=== PATIENT | female | born 1960 | race Two or more races ===

== ENCOUNTER 2021-04-17 05:44 | Day surgery (SDC) | payer OTHER | END 2021-04-17 17:30 | disposition home or self-care (01) | LOC: AMB-ENDOS 05:44 | PROVIDERS: ATTEND Surgery | DX: D12.0 Benign neoplasm of cecum (principal); D12.2 Benign neoplasm of ascending colon; D12.3 Benign neoplasm of transverse colon; D12.8 Benign neoplasm of rectum; K64.8 Other hemorrhoids; Z20.822 Contact with and (suspected) exposure to COVID-19; Z12.11 Encounter for screening for malignant neoplasm of colon ==

== ENCOUNTER 2021-05-06 12:15 | Inpatient (IN) | payer OTHER ==
[~2021-05-06] VITALS: Ht 160 cm; Wt 88.5 kg
[2021-05-07] MEDS ORDERED: HUMALOG100 UNIT/2 (12:02)
[2021-05-07] MEDS ORDERED: LANTUS SOL100 UNIT/1 (12:02)
[2021-05-07] MEDS ORDERED: PROAIR RESPICL90 MCG IH (12:03)
[2021-05-07] MEDS ORDERED: SINGULAIR10 MG PO (12:03)
[2021-05-07] MEDS ORDERED: WIXELA 100-501 EACH IH (12:03)
[2021-05-07] MEDS ORDERED: ZYRTEC10 M3 PO (12:04)
[2021-05-07] MEDS ORDERED: MILLIPRED5 MG PO (12:04)
[2021-05-07] MEDS ORDERED: DILTIAZEM ER120 M2 PO (12:05)
[2021-05-07] MEDS ORDERED: ENBREL50 MG/1 M1 SUBCUTANEO (12:05)
[2021-05-07] MEDS ORDERED: IRBESARTAN150 MG PO (12:05)
[2021-05-07] MEDS ORDERED: PANTOPRAZOLE SO40 MG PO (12:06)
[2021-05-07] MEDS ORDERED: BACLOFEN20 MG PO (12:06)
[2021-05-07] MEDS ORDERED: SYNTHROID50 MCG PO (12:06)
[2021-05-07] MEDS ORDERED: RESTASIS MULTI5.5 ML OP (12:07)
[2021-05-07] MEDS ORDERED: SYSTANE 0.3-0.1 EACH OP (12:08)
[2021-05-07] MEDS ORDERED: EPIPEN0.3 MG/0.1 IJ (12:08)
[2021-05-07] MEDS ORDERED: MAGNESIUM250 M1 PO (12:09)
[2021-05-07] MEDS ORDERED: KLOR-CON M1010 MEQ PO (12:09)
[2021-05-07] MEDS ORDERED: D3 + K2 DOTS 11 EACH PO (12:09)
[2021-05-07] MEDS ORDERED: MULTIPLE VITAM1 EAC2 PO (12:09)
[2021-05-07] MEDS ORDERED: PROBIOTIC1 EAC2 PO (12:10)
[2021-05-13] MEDS ORDERED: TORADOL60 MG IM (17:10)
== END 2021-05-13 18:40 | disposition home or self-care (01) | DRG 330 ==
LOC: SURH 05-09 05:45 → O/R 05-09 05:45 → SURH 05-09 08:30
PROVIDERS: ADMIT Surgery; ATTEND Surgery
PROC: 0DTP4ZZ Resection of Rectum, Percutaneous Endoscopic Approach (ICD-10-PCS; 2021-05-09)
PROC: 0DNW4ZZ Release Peritoneum, Percutaneous Endoscopic Approach (ICD-10-PCS; 2021-05-09)
PROC: 0DJD8ZZ Inspection of Lower Intestinal Tract, Via Natural or Artificial Opening Endoscopic (ICD-10-PCS; 2021-05-09)
PROC: 0DBN4ZZ Excision of Sigmoid Colon, Percutaneous Endoscopic Approach (ICD-10-PCS; principal; 2021-05-09 08:30)
DX: K57.32 Diverticulitis of large intestine without perforation or abscess without bleeding (principal); N82.3 Fistula of vagina to large intestine; E27.49 Other adrenocortical insufficiency; K66.0 Peritoneal adhesions (postprocedural) (postinfection); I10 Essential (primary) hypertension; Z20.822 Contact with and (suspected) exposure to COVID-19; E11.65 Type 2 diabetes mellitus with hyperglycemia; J44.9 Chronic obstructive pulmonary disease, unspecified; Z79.4 Long term (current) use of insulin

== ENCOUNTER 2022-06-06 08:38 | Day surgery (SDC) | payer OTHER ==
[~2022-06-06 08:38] MED LIST: BACLOFEN20 MG PO; D3 + K2 DOTS 11 EACH PO; DILTIAZEM ER120 M2 PO; ENBREL50 MG/1 M1 SUBCUTANEO; EPIPEN0.3 MG/0.1 IJ; HUMALOG100 UNIT/2; IRBESARTAN150 MG PO; KLOR-CON M1010 MEQ PO; LANTUS SOL100 UNIT/1; MAGNESIUM250 M1 PO; MILLIPRED5 MG PO; MULTIPLE VITAM1 EAC2 PO; PANTOPRAZOLE SO40 MG PO; PROAIR RESPICL90 MCG IH; PROBIOTIC1 EAC2 PO; RESTASIS MULTI5.5 ML OP; SINGULAIR10 MG PO; SYNTHROID50 MCG PO; SYSTANE 0.3-0.1 EACH OP; TORADOL60 MG IM; WIXELA 100-501 EACH IH; ZYRTEC10 M3 PO
== END 2022-06-06 14:30 | disposition home or self-care (01) ==
LOC: AMB-ENDOS 08:38
PROVIDERS: ATTEND Surgery
DX: N82.4 Other female intestinal-genital tract fistulae (principal); K59.09 Other constipation; K64.8 Other hemorrhoids; K64.5 Perianal venous thrombosis; Z88.2 Allergy status to sulfonamides; Z91.040 Latex allergy status; Z91.018 Allergy to other foods; Z88.1 Allergy status to other antibiotic agents; Z20.822 Contact with and (suspected) exposure to COVID-19